=== PATIENT | female | born 1955 | race Caucasian/White ===

== ENCOUNTER 2016-10-03 10:30 | Observation (INO) | payer BC ==
--- NOTE | 2016-10-03 10:48 | ED ---
General Adult HPI - General Chief complaint: Chest Pain Stated complaint: chest pain Time Seen by Provider: 10/03/16 10:40 Source: patient, RN notes reviewed Mode of arrival: wheelchair Limitations: no limitations - History of Present Illness Initial comments: This is a 60-year-old female presents emergency Department complaining of difficulty breathing. Patient states his been ongoing for a few weeks but getting progressively worse per patient states she noticed particularly when she has done some exertion. Patient states about 3 years ago she had similar symptoms but they couldn't find anything wrong. 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 Patient states when she has the difficulty breathing she also has some discomfort in her chest that goes up and her neck into her right jaw. Patient states rest takes away the pain in the difficulty breathing. Patient denies any recent fever chills or cough. Patient denies any recent trips or travel. Patient states she did not have any chest pain but she did have palpitations. Patient denies any headache patient denies any numbness weakness patient denies lightheadedness dizziness or near syncopal episode. Patient denies any leg swelling or calf pain. Patient denies abdominal pain patient denies nausea vomiting or diarrhea. - Related Data Home Medications Medication Instructions Recorded Confirmed Aspirin 325 mg PO DAILY PRN 10/03/16 10/03/16 L.acidoph,Paracasei, B.lactis 1 cap PO DAILY 10/03/16 10/03/16 [Probiotic] Powell-3 Fatty Acids [Powell-3] 1,000 mg PO DAILY 10/03/16 10/03/16 Pravastatin Sodium [Pravachol] 40 mg PO HS 10/03/16 10/03/16 Ubiquinol 100 mg PO HS 10/03/16 10/03/16 Allergies Allergy/AdvReac Type Severity Reaction Status Date / Time No Known Allergies Allergy Verified 10/03/16 11:15 Review of Systems ROS Statement: Those systems with pertinent positive or pertinent negative responses have been documented in the HPI. ROS Other: All systems not noted in ROS Statement are negative. Past Medical History Past Medical History: Hyperlipidemia History of Any Multi-Drug Resistant Organisms: None Reported Past Surgical History: Hysterectomy Past Psychological History: No Psychological Hx Reported Smoking Status: Never smoker Past Alcohol Use History: None Reported Past Drug Use History: None Reported General Exam - General Exam Comments Initial Comments: GENERAL: Patient is well-developed and well-nourished. Patient is nontoxic and well- hydrated and is in mild distress. ENT: Neck is soft and supple. No significant lymphadenopathy is noted. Oropharynx is clear. Moist mucous membranes. Neck has full range of motion without eliciting any pain. EYES: The sclera were anicteric and conjunctiva were pink and moist. Extraocular movements were intact and pupils were equal round and reactive to light. Eyelids were unremarkable. PULMONARY: Unlabored respirations. Good breath sounds bilaterally. No audible rales rhonchi or wheezing was noted. CARDIOVASCULAR: There is a regular rate and rhythm without any murmurs gallops or rubs. ABDOMEN: Soft and nontender with normal bowel sounds. No palpable organomegaly was noted. There is no palpable pulsatile mass. SKIN: Skin is clear with no lesions or rashes and otherwise unremarkable. NEUROLOGIC: Patient is alert and oriented x3. Cranial nerves II through XII are grossly intact. Motor and sensory are also intact. Normal speech, volume and content. Symmetrical smile. MUSCULOSKELETAL: Normal extremities with adequate strength and full range of motion. No lower extremity swelling or edema. No calf tenderness. LYMPHATICS: No significant lymphadenopathy is noted PSYCHIATRIC: Normal psychiatric evaluation. Normal interpersonal interactions appears functionally intact in deals appropriately with others. No signs of depression. No signs of anxiety. No delusions. No hallucinations. Limitations: no limitations Course Vital Signs 10/03/16 10/03/16 10/03/16 10:32 11:45 11:52 Temperature 97.8 F Pulse Rate 78 66 61 Respiratory 20 16 16 Rate Blood Pressure 190/92 156/86 160/86 O2 Sat by Pulse 99 97 96 Oximetry 10/03/16 12:30 Temperature Pulse Rate 62 Respiratory 16 Rate Blood Pressure 152/83 O2 Sat by Pulse 97 Oximetry Medical Decision Making - Medical Decision Making EKG shows normal sinus rhythm at 61 bpm RI intervals 158 QRSs 80 QT interval 384 QTC is 386. Patient's EKG shows no ST segment elevation or depression or T- wave inversion noted. Chest x-ray was normal. I will back into reevaluate the patient she states as long she is resting she's not having any of that upper chest discomfort radiating into her jaw. She states she is not short of breath. Because of her significant symptoms and especially with the relation ship with those symptoms to exertion think the patient is having unstable angina I put the patient on heparin and admitted the patient I spoke with Dr. Burgess and wrote admit orders. I continued the heparin on the floor and a consult cardiology. - Lab Data Result diagrams: 10/03/16 11:25 10/03/16 11:25 Lab Results 10/03/16 10/03/16 10/03/16 Range/Units 11:25 11:25 11:25 WBC 3.9 (3.8-10.6) k/uL RBC 4.49 (3.80-5.40) m/uL Hgb 13.2 (11.4-16.0) gm/dL Hct 39.3 (34.0-46.0) % MCV 87.5 (80.0-100.0) fL MCH 29.4 (25.0-35.0) pg MCHC 33.6 (31.0-37.0) g/dL RDW 12.3 (11.5-15.5) % Plt Count 308 (150-450) k/uL Neutrophils % 55 % Lymphocytes % 34 % Monocytes % 8 % Eosinophils % 1 % Basophils % 0 % Neutrophils # 2.1 (1.3-7.7) k/uL Lymphocytes # 1.3 (1.0-4.8) k/uL Monocytes # 0.3 (0-1.0) k/uL Eosinophils # 0.0 (0-0.7) k/uL Basophils # 0.0 (0-0.2) k/uL PT (9.0-12.0) sec INR (<1.1) APTT (22.0-30.0) sec D-Dimer (<0.60) mg/L FEU Sodium 145 (137-145) mmol/L Potassium 4.6 (3.5-5.1) mmol/L Chloride 105 (98-107) mmol/L Carbon Dioxide 27 (22-30) mmol/L Anion Gap 13 mmol/L BUN 17 (7-17) mg/dL Creatinine 0.79 (0.52-1.04) mg/dL Est GFR (MDRD) Af Amer >60 (>60 ml/min/1.73 sqM) Est GFR (MDRD) Non-Af >60 (>60 ml/min/1.73 sqM) Glucose 90 (74-99) mg/dL Calcium 9.5 (8.4-10.2) mg/dL Magnesium 2.3 (1.6-2.3) mg/dL Total Bilirubin 0.5 (0.2-1.3) mg/dL AST 22 (14-36) U/L ALT 33 (9-52) U/L Alkaline Phosphatase 59 (38-126) U/L Total Creatine Kinase 145 H (30-135) U/L CK-MB (CK-2) 1.6 (0.0-2.4) ng/mL CK-MB (CK-2) Rel Index 1.1 Troponin I <0.012 (0.000-0.034) ng/mL NT-Pro-B Natriuret Pep pg/mL Total Protein 7.6 (6.3-8.2) g/dL Albumin 4.6 (3.5-5.0) g/dL 10/03/16 10/03/16 Range/Units 11:25 11:25 WBC (3.8-10.6) k/uL RBC (3.80-5.40) m/uL Hgb (11.4-16.0) gm/dL Hct (34.0-46.0) % MCV (80.0-100.0) fL MCH (25.0-35.0) pg MCHC (31.0-37.0) g/dL RDW (11.5-15.5) % Plt Count (150-450) k/uL Neutrophils % % Lymphocytes % % Monocytes % % Eosinophils % % Basophils % % Neutrophils # (1.3-7.7) k/uL Lymphocytes # (1.0-4.8) k/uL Monocytes # (0-1.0) k/uL Eosinophils # (0-0.7) k/uL Basophils # (0-0.2) k/uL PT 10.3 (9.0-12.0) sec INR 1.0 (<1.1) APTT 23.8 (22.0-30.0) sec D-Dimer 0.29 (<0.60) mg/L FEU Sodium (137-145) mmol/L Potassium (3.5-5.1) mmol/L Chloride (98-107) mmol/L Carbon Dioxide (22-30) mmol/L Anion Gap mmol/L BUN (7-17) mg/dL Creatinine (0.52-1.04) mg/dL Est GFR (MDRD) Af Amer (>60 ml/min/1.73 sqM) Est GFR (MDRD) Non-Af (>60 ml/min/1.73 sqM) Glucose (74-99) mg/dL Calcium (8.4-10.2) mg/dL Magnesium (1.6-2.3) mg/dL Total Bilirubin (0.2-1.3) mg/dL AST (14-36) U/L ALT (9-52) U/L Alkaline Phosphatase (38-126) U/L Total Creatine Kinase (30-135) U/L CK-MB (CK-2) (0.0-2.4) ng/mL CK-MB (CK-2) Rel Index Troponin I (0.000-0.034) ng/mL NT-Pro-B Natriuret Pep 40 pg/mL Total Protein (6.3-8.2) g/dL Albumin (3.5-5.0) g/dL Critical Care Time Critical Care Time: Yes Total Critical Care Time: 35 Disposition Clinical Impression: Unstable angina pectoris Disposition: ADMITTED IP TO THIS [facility] Time of Disposition: 13:09
[2016-10-03 11:52] LABS: Basophils % (A) 0 %; CH 30.3; CHCM 34.7; Eosinophils % (A) 1 %; HCT 39.3 % (34.0-46.0); HGB 13.2 gm/dL (11.4-16.0); Luc # (Auto) 0.11; Luc % (Auto) 3; Lymphocytes # (A) 1.3 k/uL (1.0-4.8); Lymphocytes % (A) 34 %; MCH 29.4 pg (25.0-35.0); MCHC 33.6 g/dL (31.0-37.0); MCV 87.5 fL (80.0-100.0); Mean Platelet Volume 6.3; Monocytes # (A) 0.3 k/uL (0-1.0); Monocytes % (A) 8 %; Neutrophils # (A) 2.1 k/uL (1.3-7.7); Neutrophils % (A) 55 %; RBC 4.49 m/uL (3.80-5.40); RDW 12.3 % (11.5-15.5); WBC 3.9 k/uL (3.8-10.6); WBC (Perox) 3.98
[2016-10-03 12:02] LABS: Partial Thromboplastin Time 23.8 sec (22.0-30.0); Prothrombin Time 10.3 sec (9.0-12.0)
[2016-10-03 12:14] LABS: Creatine Kinase 145 U/L (30-135)
--- NOTE | 2016-10-03 12:14 | XR ---
EXAMINATION TYPE: XR chest 2V DATE OF EXAM: 10/03/2016 12:04 PM HISTORY: Chest and jaw pain. REFERENCE: NONE. FINDINGS: There is a mild to moderate levoscoliosis. The lungs are clear. Pleural spaces are clear. Heart size is within normal limits. IMPRESSION: NO ACUTE INTRATHORACIC ABNORMALITY.
[2016-10-03 12:27] LABS: Creatine Kinase MB 1.6 ng/mL (0.0-2.4); Troponin I <0.012 ng/mL (0.000-0.034)
[2016-10-03 12:31] LABS: ALT 33 U/L (9-52); AST 22 U/L (14-36); Alkaline Phosphatase 59 U/L (38-126); Anion Gap 13 mmol/L; Blood Urea Nitrogen 17 mg/dL (7-17); Calcium 9.5 mg/dL (8.4-10.2); Carbon Dioxide 27 mmol/L (22-30); Chloride 105 mmol/L (98-107); Glucose 90 mg/dL (74-99); Magnesium 2.3 mg/dL (1.6-2.3); Non-African American GFR(MDRD) >60 (>60 ml/min/1.73 sqM); Potassium 4.6 mmol/L (3.5-5.1); Sodium 145 mmol/L (137-145); Total Bilirubin 0.5 mg/dL (0.2-1.3); Total Protein 7.6 g/dL (6.3-8.2)
[2016-10-03] MEDS ORDERED: NITROGLYCERIN SL TABS 0.4 MG TAB SUBLINGUAL PRN (13:09)
[2016-10-03 18:25] LABS: Creatine Kinase 117 U/L (30-135)
[2016-10-03 18:39] LABS: Creatine Kinase MB 1.2 ng/mL (0.0-2.4); Troponin I <0.012 ng/mL (0.000-0.034)
[2016-10-03] MEDS: NITROGLYCERIN OINT 1 INCH/GM PACKET TOPICAL SCH (21:36)
[2016-10-04] MEDS: NITROGLYCERIN OINT 1 INCH/GM PACKET TOPICAL SCH ×3 (00:01→16:03)
[2016-10-04 00:30] LABS: Creatine Kinase 101 U/L (30-135)
[2016-10-04 00:43] LABS: Creatine Kinase MB 1.1 ng/mL (0.0-2.4); Troponin I <0.012 ng/mL (0.000-0.034)
[2016-10-04 07:38] LABS: Cholesterol 207 mg/dL (<200); HDL Cholesterol 68 mg/dL (40-60); Triglycerides 81 mg/dL (<150)
[2016-10-04] MEDS ORDERED: ALPRAZolam 0.5 MG TAB PO PRN (09:41)
[2016-10-04] MEDS ORDERED: SODIUM CHLORIDE 0.9% 1,000 ML in EMPTY BAG 1 BAG IV ONE (09:41)
[2016-10-04] MEDS ORDERED: ALPRAZolam 0.25 MG TAB PO PRN (09:41)
[2016-10-04] MEDS ORDERED: NITROGLYCERIN SL TABS 0.4 MG TAB SUBLINGUAL PRN (09:41)
[2016-10-04] MEDS ORDERED: ATORVASTATIN 80 MG TAB PO STA (09:41)
--- NOTE | 2016-10-04 09:47 | P.CRDCN ---
History of Present Illness Consult date: 10/04/16 History of present illness: This is a 60-year-old female with history of hypercholesterolemia and family history of ischemic heart disease has been experiencing a tight feeling in the upper chest that radiated to the jaw and also to the left arm. This happens mostly in the morning while she was working on her form. Usually the symptoms are resolved with rest within 5 minutes. He should never had any rest pain. Patient's EKG so far are normal. Cardiac enzymes are negative. However given the typical symptoms size to of angina, patient is advised to have a cardiac catheterization for definitive diagnosis. She was also given a choice of stress test that patient preferred to have cardiac catheterization and have definitive diagnosis. Patient is explained the risks and benefits of the procedure which she fully understood and accepted. Review of Systems REVIEW OF SYSTEMS: CONSTITUTIONAL:. Patient is doing well. No complaints of fever or chills EYES: Denies diplopia, blurring of vision EARS, NOSE, MOUTH, THROAT: Denies headaches, denies sore throat. CARDIOVASCULAR: As per HPI RESPIRATORY: Denies shortness of breath, denies cough. GASTROINTESTINAL: Denies change in appetite, denies abdominal pain, denies diarrhea GENITOURINARY: Denies hematuria, denies infections. MUSKULOSKELETAL: Denies pain, denies swelling. Denies any cramps or claudication INTEGUMENTARY: Denies rash, denies eczema. NEUROLOGICAL: Denies focal weakness, or visual disturbance. Denies any dizziness or syncope PSYCHIATRIC: Denies anxiety, denies depression. HEMATOLOGIC/LYMPHATIC: Denies any bleeding, denies enlarged lymph nodes. Past Medical History Past Medical History: Hyperlipidemia Additional Past Medical History / Comment(s): Migraines, osteoporosis, bronchitis, diverticular disease, past L foot and R ankle fractures. History of Any Multi-Drug Resistant Organisms: None Reported Past Surgical History: Bladder Surgery, Hysterectomy Additional Past Surgical History / Comment(s): Bladder suspension, colonoscopy- normal. Past Anesthesia/Blood Transfusion Reactions: No Reported Reaction Past Psychological History: No Psychological Hx Reported Additional Psychological History / Comment(s): Pt resides with her spouse. She is independent. Smoking Status: Never smoker Past Alcohol Use History: None Reported Past Drug Use History: None Reported - Past Family History Father Additional Family Medical History / Comment(s): Father had enlarged heart. He at the age of 88yrs. Mother Family Medical History: Myocardial Infarction (UT) Additional Family Medical History / Comment(s): Mother had UT's. She lived to be 91 yrs. old. Medications and Allergies Home Medications Medication Instructions Recorded Confirmed Type Aspirin 325 mg PO DAILY PRN 10/03/16 10/03/16 History L.acidoph,Paracasei, B.lactis 1 cap PO DAILY 10/03/16 10/03/16 History [Probiotic] Prospect-3 Fatty Acids [Prospect-3] 1,000 mg PO DAILY 10/03/16 10/03/16 History Pravastatin Sodium [Pravachol] 40 mg PO HS 10/03/16 10/03/16 History Ubiquinol 100 mg PO HS 10/03/16 10/03/16 History Allergies Allergy/AdvReac Type Severity Reaction Status Date / Time No Known Allergies Allergy Verified 10/03/16 11:15 Physical Exam Vitals: Vital Signs Temp Pulse Pulse Resp BP BP Pulse Ox 10/04/16 07:10 98.5 F 65 16 129/78 93 L 10/04/16 04:00 97.7 F 67 16 116/69 97 10/04/16 03:40 70 16 10/03/16 23:53 97.9 F 68 16 130/72 96 10/03/16 23:17 76 16 10/03/16 20:00 67 16 10/03/16 19:58 98.5 F 69 16 138/77 96 10/03/16 19:32 97.5 F L 74 16 143/82 94 L 10/03/16 18:12 70 16 113/64 95 10/03/16 17:30 74 16 117/68 95 10/03/16 17:00 78 16 124/70 96 10/03/16 16:00 97.2 F L 68 16 134/83 95 Intake and Output 10/03/16 10/04/16 10/04/16 22:59 06:59 14:59 Other: # Voids 2 Weight 55 kg GENERAL EXAM: Patient is alert and oriented and doesn't appear to be in any acute distress HEENT: Normocephalic. Normal reaction of pupils, equal size, normal range of extraocular motion. No erythema or exudates in the throat. NECK: No masses, no nuchal rigidity. CHEST: No chest wall deformity. LUNGS: Equal air entry with no crackles or wheeze. HEART: S1 and S2 normal with no audible mumurs or gallops. Regular rhythm, femorals equal on both sides.. ABDOMEN: No hepatosplenomegaly, normal bowel sounds, no guarding or rigidity. SKIN: No rashes CENTRAL NERVOUS SYSTEM: No focal deficits. EXTREMITIES: No cyanosis, clubbing or edema. Results 10/03/16 11:25 10/03/16 11:25 Cardiac Enzymes 10/03/16 10/03/16 Range/Units 17:52 23:49 CK-MB (CK-2) 1.2 1.1 (0.0-2.4) ng/mL Troponin I <0.012 <0.012 (0.000-0.034) ng/mL Lipids 10/04/16 Range/Units 06:43 Triglycerides 81 (<150) mg/dL Cholesterol 207 H (<200) mg/dL HDL Cholesterol 68 H (40-60) mg/dL Current Medications Generic Name Dose Route Start Last Admin Trade Name Freq PRN Reason Stop Dose Admin Aspirin 325 mg 10/04/16 09:00 Aspirin PO DAILY [facility] Nitroglycerin 1 inch 10/03/16 18:00 10/04/16 05:17 Nitro-Bid Oint TOPICAL Not Given Q6HR ROSARIO Nitroglycerin 0.4 mg 10/03/16 13:09 Nitrostat SUBLINGUAL Q5M PRN Chest Pain Intake and Output 10/03/16 10/04/16 10/04/16 22:59 06:59 14:59 Other: # Voids 2 Weight 55 kg EKG Interpretations (text) Sinus rhythm Assessment and Plan (1) Hypercholesterolemia Status: Acute (2) Unstable angina pectoris Status: Acute (3) Family history of ischemic heart disease Status: Acute Plan: Patient's symptoms are suggestive of exertional angina. Patient had a stress test about 3 years ago which was negative. Patient is given the option of having stress test or cardiac catheterization for definitive diagnosis. Patient was explained the risks and benefits of the procedure. Patient wanted to go with cardiac catheterization. Further recommendations depend upon the findings on the cardiac cath. Meanwhile patient will be treated with beta blockers and nitrates along with aspirin echo. Echocardiogram is also being done.
[2016-10-04] MEDS: ASPIRIN 325 MG TAB PO SCH (10:28)
--- NOTE | 2016-10-04 11:04 | ECHOF ---
Referral Reason:Chest pain and cardiomyopathy MEASUREMENTS -------- HEIGHT: 149.9 cm WEIGHT: 54.9 kg BP: 129/78 RVIDd: 2.6 cm (< 3.3) IVSd: 1.1 cm (0.6 - 1.1) LVIDd: 3.9 cm (3.9 - 5.3) LVPWd: 0.9 cm (0.6 - 1.1) IVSs: 1.4 cm LVIDs: 2.5 cm LVPWs: 1.3 cm LA Diam: 2.7 cm (2.7 - 3.8) LAESV Index (A-L): 15.49 ml/m Ao Diam: 2.6 cm (2.0 - 3.7) AV Cusp: 1.8 cm (1.5 - 2.6) MV E Vinayak: 0.73 m/s MV DecT: 240 ms MV A Vinayak: 0.74 m/s MV E/A Ratio: 0.99 RAP: 5.00 mmHg RVSP: 26.36 mmHg FINDINGS -------- Sinus rhythm. This was a technically good study. The left ventricular size is normal. There is borderline concentric left ventricular hypertrophy. Overall left ventricular systolic function is normal with, an EF between 60 - 65 %. The right ventricle is normal in size and function. Normal LA size by volume 22+/-6 ml/m2. The right atrium is normal in size. The aortic valve is trileaflet and appears structurally normal. There is trace mitral regurgitation. Mild tricuspid regurgitation present. Right ventricular systolic pressure is normal at < 35 mmHg. The pulmonic valve is normal. There is no pulmonic regurgitation present. The aortic root size is normal. Normal inferior vena cava with normal inspiratory collapse consistent with estimated right atrial pressure of 5 mmHg. There is no pericardial effusion. CONCLUSIONS -------- 1. Sinus rhythm. 2. There is trace mitral regurgitation. 3. Mild tricuspid regurgitation present. 4. Right ventricular systolic pressure is normal at < 35 mmHg. 5. The aortic root size is normal. 6. Normal inferior vena cava with normal inspiratory collapse consistent with estimated right atrial pressure of 5 mmHg. 7. There is no pericardial effusion. 8. This was a technically good study. 9. The left ventricular size is normal. 10. There is borderline concentric left ventricular hypertrophy. 11. Overall left ventricular systolic function is normal with, an EF between 60 - 65 %. 12. The right ventricle is normal in size and function. 13. Normal LA size by volume 22+/-6 ml/m2. 14. The right atrium is normal in size. 15. The aortic valve is trileaflet and appears structurally normal. BRONZE PLATER: Corrie Zhao RDCS
[2016-10-04] MEDS ORDERED: IV FLUID CONTINUATION 1,000 ML IV ONE (14:00)
[2016-10-04] MEDS ORDERED: LIDOCAINE 2% INJ 20 MG/ML (20 ML MDV) ONE (14:07)
[2016-10-04] MEDS ORDERED: MIDAZOLAM 2 MG/2 ML VIAL ONE (14:19)
[2016-10-04] MEDS ORDERED: fentaNYL (PF) 50 MCG/ML 2 ML AMP ONE (14:20)
[2016-10-04] MEDS ORDERED: fentaNYL (PF) 50 MCG/ML 2 ML AMP IV ONE (14:21)
[2016-10-04] MEDS ORDERED: MIDAZOLAM 2 MG/2 ML VIAL IV ONE (14:22)
[2016-10-04] MEDS ORDERED: LIDOCAINE 2% INJ 20 MG/ML SQ ONE (14:23)
[2016-10-04] MEDS ORDERED: IOHEXOL 350 MG/ML 100 ML BOTTLE INJ ONE (14:36)
[2016-10-04] MEDS ORDERED: RX INFO: IV CONTRAST WAS GIVEN 1 EACH MISC MISCELLANE PRN (14:46)
--- NOTE | 2016-10-04 14:54 | P.PCN ---
Date of Procedure: 10/04/16 Preoperative Diagnosis: Exertional angina Postoperative Diagnosis: The same. Single-vessel disease Procedure(s) Performed: Left heart catheterization with left ventriculography Description of Procedure: HISTORY: This is a 60-year-old female with history of hypercholesterolemia and family history of ischemic heart disease who has been experiencing exertional chest pain suggestive of exertional angina. Patient had a negative stress test about 3 years ago. Patient is advised to have a cardiac catheterization for definitive diagnosis. CONSENT:I have discussed the risks, benefits and alternative therapies for the above-mentioned procedure and for both sedation/analgesia as well as necessary blood product administration, if indicated, as they pertain to this patient. The patient has indicated understanding and acceptance of the risks and procedures discussed. PROCEDURE: Patient was brought to the lab in a fasting state. Patient was given some IV sedation. The right groin is infiltrated with lidocaine and right femoral artery was entered using Seldinger technique. A 6-Mongolian catheter was left in place and selective coronary arteriography and left ventriculography was performed. Patient tolerated the procedure well. Manual compression is being applied for hemostasis. No immediate complications were noted and patient was transferred to [facility] in a stable condition HEMODYNAMICS: Aortic pressure is 120/70. Left ventricular end-diastolic pressure is 12. There was no gradient across the aortic valve SELECTIVE CORONARY ARTERIOGRAPHY: LEFT MAIN:. Normal length and patent THE LEFT ANTERIOR DESCENDING CORONARY ARTERY: Fair caliber vessel with plaque noted in the left anterior descending coronary artery in the midportion with 30-40% luminal narrowing. There is also about 40 % stenosis of the first diagonal. The far distal LAD has about 70-80% stenosis near the apex THE LEFT CIRCUMFLEX AND IS CORONARY ARTERY: Good caliber vessel and free of any significant occlusive disease. It gives rise to moderate caliber OM branch and a small PLV branch THE RIGHT CORONARY ARTERY: This is a good caliber vessel and dominant and gives rise good-sized PDA and small caliber PDA branch. The vessel is free of any significant occlusive disease LEFT VENTRICULOGRAPHY: This showed normal-sized cardiac silhouette with good systolic function FINAL IMPRESSION: Single-vessel disease with a mild stenosis in the midportion and also involving the ostium of the diagonal branch. There is moderate to severe disease involving the distal LAD near the apex. Rest of the coronary system is free of any significant occlusive disease PLAN: Maximum medical therapy and risk factor modification PROGNOSIS: Fair
[2016-10-04] MEDS ORDERED: SODIUM CHLORIDE 0.9% 1,000 ML IV SCH (15:00)
--- NOTE | 2016-10-04 19:16 | HP ---
H&P AND DISCHARGE SUMMARY DATE OF ADMISSION: 10/03/2016 Patient is a 60-year-old female who came in with complaints of chest pain which started after lifting boxes. The chest pain is in the retrosternal area as well as in the epigastric area. Patient does have some non-specific ST-T wave changes. Troponins were negative. Patient's chest pain is associated with some shortness of breath, light-headedness. Chest pain is about 7/10 in severity, mostly a pressure-like sensation. Because of the typical nature of the chest pain, patient underwent cardiac catheterization which showed clean coronaries. The patient does not have any chronic processes on the chest x-ray. D-dimer is negative. Patient's chest pain is non-pleuritic in nature. Apparently patient was nauseous and patient did eat around that time. Patient was having some gastroesophageal reflux disease symptoms that had been going on for some time, per the patient. REVIEW OF SYSTEMS: CONSTITUTIONAL: No fever, no malaise, no fatigue. HEENT: No recent visual problems or hearing problems. Denied any sore throat. CARDIOVASCULAR: As described in HPI. Patient denied any orthopnea, PND. Patient did have some shortness of breath, resolved at this point of time. Patient's chest pain completely resolved since admission. PULMONARY: No shortness of breath, no cough, no hemoptysis. GASTROINTESTINAL: No diarrhea, no nausea, no vomiting, no abdominal pain. Normoactive bowel sounds. NEUROLOGICAL: No headaches, no weakness, no numbness. HEMATOLOGICAL: Denies any bleeding or petechiae. GENITOURINARY: Denies any burning micturition, frequency, or urgency. MUSCULOSKELETAL/RHEUMATOLOGICAL: Denies any joint pain, swelling, or any muscle pain. ENDOCRINE: Denies any polyuria or polydipsia. The rest of the 14 point review of systems is negative. Home medications include: 1. Aspirin. 2. Lactobacillus acidophilus. 3. Oxford-3 fatty acids. 4. Pravastatin. 5. Ubiquinol. ALLERGIES: NO KNOWN DRUG ALLERGIES. Past medical history is significant for hyperlipidemia, hysterectomy in the past. SOCIAL HISTORY: Denied any smoking, alcohol abuse or any drug abuse. FAMILY HISTORY: Denied any family history of premature coronary artery disease. PHYSICAL EXAMINATION: VITAL SIGNS: Temperature 97.8, pulse ( ), respiratory rate of 16. Blood pressure is 160/86. Saturating at 96% on room air. GENERAL: The patient is alert and oriented x3, not in any acute distress. Well developed, well nourished. HEENT: Pupils are round and equally reacting to light. EOMI. No scleral icterus. No conjunctival pallor. Normocephalic, atraumatic. No pharyngeal erythema. No thyromegaly. CARDIOVASCULAR: S1 and S2 present. No murmurs, rubs, or gallops. PULMONARY: Chest is clear to auscultation, no wheezing or crackles. ABDOMEN: Soft, nontender, nondistended, normoactive bowel sounds. No palpable organomegaly. MUSCULOSKELETAL: No joint swelling or deformity. EXTREMITIES: No cyanosis, clubbing, or pedal edema. NEUROLOGICAL: Gross neurological examination did not reveal any focal deficits. SKIN: No rashes. LABORATORY DATA: CBC, CMP, troponin, EKG all essentially negative. D-dimer is negative. Patient underwent cardiac catheterization which did not show any significant coronary occlusive vascular disease. ASSESSMENT AND PLAN: 1. Chest pain; rule out acute coronary syndromes and unstable angina. Patient underwent cardiac catheterization that showed clean coronaries. Patient's symptoms are most probably related to gastroesophageal reflux disease. Patient is recommended to take 14 days of Prilosec. Apparently Cardiology is recommending monitoring overnight because of the cardiac catheterization and for possible hematoma formation. Patient can be discharged tomorrow. 2. Hyperlipidemia. Patient is taking pravastatin and omega-3 fatty acids, which will be continued. Dietary modification changes and diet counseling will be provided. Exercise counseling will be provided. 3. Gastritis or gastroesophageal reflux symptoms. Management as mentioned above. This dictation is both H&P and discharge summary. Patient probably can be discharged tomorrow morning. Cardiac diet. Activity as tolerated. Follow up with her PCP in 3 to 7 days and follow up with Cardiology as scheduled.
[2016-10-04 20:28] VITALS: RESP 16
[2016-10-05 07:43] VITALS: BP 128/74; PULSE 69; TEMP 98
[2016-10-05] MEDS: ASPIRIN 325 MG TAB PO SCH (08:56)
[2016-10-05] MEDS ORDERED: ISOSORBIDE MONONITRATE ER 30 MG TAB.ER.24H PO SCH (09:00)
[2016-10-05] MEDS ORDERED: METOPROLOL TARTRATE 25 MG TAB PO SCH (09:00)
== END 2016-10-05 09:39 | disposition home or self-care (01) ==
LOC: EC 10:30 → 3OBS 13:09
PROVIDERS: ADMIT Internal Medicine; ATTEND Internal Medicine
DX: I25.110 Atherosclerotic heart disease of native coronary artery with unstable angina pectoris (principal); E78.00 Pure hypercholesterolemia, unspecified; E78.5 Hyperlipidemia, unspecified; K21.9 Gastro-esophageal reflux disease without esophagitis; M81.0 Age-related osteoporosis without current pathological fracture; Z79.82 Long term (current) use of aspirin; Z82.49 Family history of ischemic heart disease and other diseases of the circulatory system; Z79.899 Other long term (current) drug therapy
CPT/HCPCS: 99291; 36415; 93005; 93306; 93458; 85379; 83880; 80061; 80053; 82550; 82553; 83735; 84484; 85025; 85610; 85730; 71020; G0378 ×3; C1894; C1769; J2001; J2250; Q9967; J3010

== ENCOUNTER → 2017-01-28 | Outpatient (CLI) | payer BC ==
--- NOTE | 2017-01-30 07:37 | MM ---
Reason for exam: screening (asymptomatic). Last mammogram was performed 1 year ago. History: Patient is postmenopausal. Family history of breast cancer in maternal aunt at age 80. Physical Findings: A clinical breast exam by your physician is recommended on an annual basis and results should be correlated with mammographic findings. MG Screening Mammo w CAD Bilateral CC and MLO view(s) were taken. Prior study comparison: January 16, 2016, bilateral MG screening mammo w CAD. January 05, 2015, bilateral MG screening mammo w CAD. October 26, 2013, bilateral digital screening mammo w/CAD. The breast tissue is heterogeneously dense. This may lower the sensitivity of mammography. No significant changes when compared with prior studies. ASSESSMENT: Negative, BI-RAD 1 RECOMMENDATION: Routine screening mammogram of both breasts in 1 year.
== END | disposition home or self-care (01) ==
LOC: RADMAMWWP 16:10
PROVIDERS: ATTEND Internal Medicine
DX: Z12.31 Encounter for screening mammogram for malignant neoplasm of breast (principal)

== ENCOUNTER → 2018-06-11 | Outpatient (CLI) | payer BC ==
--- NOTE | 2018-06-12 14:17 | MM ---
Reason for exam: screening (asymptomatic). Last mammogram was performed 1 year and 4 months ago. History: Patient is postmenopausal. Family history of breast cancer in maternal aunt at age 80. Physical Findings: A clinical breast exam by your physician is recommended on an annual basis and results should be correlated with mammographic findings. MG Screening Mammo w CAD Bilateral CC and MLO view(s) were taken. Prior study comparison: January 28, 2017, bilateral MG screening mammo w CAD. January 16, 2016, bilateral MG screening mammo w CAD. The breast tissue is heterogeneously dense. This may lower the sensitivity of mammography. There is no discrete abnormality. ASSESSMENT: Negative, BI-RAD 1 RECOMMENDATION: Routine screening mammogram of both breasts in 1 year.
== END | disposition home or self-care (01) ==
LOC: RADMAMWWP 08:50
PROVIDERS: ATTEND Internal Medicine
DX: Z12.31 Encounter for screening mammogram for malignant neoplasm of breast (principal)
CPT/HCPCS: 77067

== ENCOUNTER → 2019-09-08 | Outpatient (CLI) | payer BC ==
--- NOTE | 2019-09-10 09:29 | MM ---
Reason for exam: screening (asymptomatic). Last mammogram was performed 1 year and 3 months ago. History: Patient is postmenopausal. Family history of breast cancer in maternal aunt at age 80. Physical Findings: A clinical breast exam by your physician is recommended on an annual basis and results should be correlated with mammographic findings. MG Screening Mammo w CAD Bilateral CC and MLO view(s) were taken. Prior study comparison: June 11, 2018, bilateral MG screening mammo w CAD. January 28, 2017, bilateral MG screening mammo w CAD. The breast tissue is heterogeneously dense. This may lower the sensitivity of mammography. No suspicious abnormality. No significant changes when compared with prior studies. ASSESSMENT: Negative, BI-RAD 1 RECOMMENDATION: Routine screening mammogram of both breasts in 1 year.
== END | disposition home or self-care (01) ==
LOC: RADMAMWWP 07:40
PROVIDERS: ATTEND Internal Medicine
DX: Z12.31 Encounter for screening mammogram for malignant neoplasm of breast (principal)
CPT/HCPCS: 77067

== ENCOUNTER → 2020-11-11 | Outpatient (CLI) | payer BC | END | disposition home or self-care (01) | LOC: LABWHC1 14:51 | PROVIDERS: ATTEND Internal Medicine | DX: Z53.9 Procedure and treatment not carried out, unspecified reason (principal) ==

== ENCOUNTER 2021-02-08 19:07 | Emergency (ER) | payer MEDICARE ==
--- NOTE | 2021-02-08 19:37 | XR ---
EXAMINATION TYPE: XR foot complete LT DATE OF EXAM: 02/08/2021 COMPARISON: NONE HISTORY: Foot pain TECHNIQUE: 3 views FINDINGS: There is hallux valgus. There is plantar calcaneal spurring. I see no fracture nor dislocat ion. IMPRESSION: Moderate hallux valgus. No fracture seen.
--- NOTE | 2021-02-08 19:38 | XR ---
EXAMINATION TYPE: XR ankle complete LT DATE OF EXAM: 02/08/2021 COMPARISON: NONE HISTORY: Pain TECHNIQUE: 3 views FINDINGS: Ankle mortise is anatomic. I see no fracture nor dislocation. Joint spaces are normal. IMPRESSION: Negative left ankle exam. No fracture.
--- NOTE | 2021-02-08 19:52 | ED ---
Lower Extremity Injury HPI - General Chief Complaint: Extremity Injury, Lower Stated Complaint: fall/ankle injury Time Seen by Provider: 02/08/21 19:16 Source: patient, RN notes reviewed Mode of arrival: wheelchair Limitations: no limitations - History of Present Illness Initial Comments: Patient is a 65-year-old female presents to emergency room with left ankle pain. She notes that she was helping in the yard when she got her foot run over by a small farm tractor. She notes that she is able to walk on it with normal pain that shoots up the calf. She denied any numbness tingling decreased range of motion or strength. She notes that she has full range of motion just hurts on movement. She did ice it. She wanted to come in emergently get evaluated make sure nothing was broken. She denied any chest pain shortness breath headache nausea vomiting diarrhea constipation fever fatigue chills. - Related Data Home Medications Medication Instructions Recorded Confirmed Aspirin 325 mg PO DAILY PRN 10/03/16 10/03/16 L.acidoph,Paracasei, B.lactis 1 cap PO DAILY 10/03/16 10/03/16 [Probiotic] [place]-3 Fatty Acids [[place]-3] 1,000 mg PO DAILY 10/03/16 10/03/16 Pravastatin Sodium [Pravachol] 40 mg PO HS 10/03/16 10/03/16 Ubiquinol [Co-Veratrol] 100 mg PO HS 10/03/16 10/03/16 Previous Rx's Medication Instructions Recorded Omeprazole [PriLOSEC] 40 mg PO AC-BRKFST #14 capsule. 10/04/16 Isosorbide Mononitrate ER [Imdur] 15 mg PO DAILY #30 dose 10/05/16 Metoprolol Tartrate [Lopressor] 25 mg PO BID #60 tablet 10/05/16 Allergies Allergy/AdvReac Type Severity Reaction Status Date / Time No Known Allergies Allergy Verified 02/08/21 19:12 Review of Systems ROS Statement: Those systems with pertinent positive or pertinent negative responses have been documented in the HPI. ROS Other: All systems not noted in ROS Statement are negative. Past Medical History Past Medical History: Hyperlipidemia Additional Past Medical History / Comment(s): Migraines, osteoporosis, bronchitis, diverticular disease, past L foot and R ankle fractures. History of Any Multi-Drug Resistant Organisms: None Reported Past Surgical History: Bladder Surgery, Hysterectomy Additional Past Surgical History / Comment(s): Bladder suspension, colonoscopy- normal. Past Anesthesia/Blood Transfusion Reactions: No Reported Reaction Past Psychological History: No Psychological Hx Reported Smoking Status: Never smoker Past Alcohol Use History: None Reported Past Drug Use History: None Reported - Past Family History Father Additional Family Medical History / Comment(s): Father had enlarged heart. He at the age of 88yrs. Mother Family Medical History: Myocardial Infarction ([place]) Additional Family Medical History / Comment(s): Mother had VA's. She lived to be 91 yrs. old. General Exam Limitations: no limitations General appearance: alert, in no apparent distress Head exam: Present: atraumatic, normocephalic, normal inspection Eye exam: Present: normal appearance, PERRL, EOMI. Absent: scleral icterus, conjunctival injection, periorbital swelling Neck exam: Present: normal inspection Respiratory exam: Present: normal lung sounds bilaterally. Absent: respiratory distress, wheezes, rales, rhonchi, stridor Cardiovascular Exam: Present: regular rate, normal rhythm, normal heart sounds. Absent: systolic murmur, diastolic murmur, rubs, gallop, clicks Extremities exam: Present: normal inspection, full ROM, tenderness (Mainly tender to the superior aspect of the lateral malleoli of left ankle.), normal capillary refill. Absent: pedal edema, joint swelling, calf tenderness Neurological exam: Present: alert, oriented X3, CN II-XII intact Psychiatric exam: Present: normal affect, normal mood Skin exam: Present: warm, dry, intact, normal color. Absent: rash Course Vital Signs 02/08/21 19:08 Temperature 98.5 F Pulse Rate 66 Respiratory 20 Rate Blood Pressure 184/97 O2 Sat by Pulse 98 Oximetry Medical Decision Making - Medical Decision Making 65-year-old female complaining of left ankle pain after getting run over by a small farm tractor. Left ankle and foot x-ray ordered. Patient declined need for any pain medication as she took Motrin before she came in. X-rays negative for any acute fractures dislocations. Case discussed with Dr. Hardwick, patient can follow-up with primary care. - Radiology Data Radiology results: report reviewed, image reviewed Left foot x-ray: Moderate hallux valgus. No fracture seen. Left ankle x-ray: Negative left ankle exam. No fracture. Disposition Clinical Impression: Left ankle sprain Disposition: HOME SELF-CARE Condition: Stable Instructions (If sedation given, give patient instructions): Ankle Sprain (ED) Additional Instructions: Please return to the Emergency Department if symptoms worsen or any other concerns. Can take [id number] anti-inflammatories for pain control. Use as tolerated. Follow-up with primary care as needed. Is patient prescribed a controlled substance at d/c from ED?: No Referrals: Fabiola Bass MD [Primary Care Provider] - 1-2 days Time of Disposition: 19:52
[2021-02-08 20:02] VITALS: BP 99/66; PULSE 78; RESP 18; TEMP 97.8
== END 2021-02-08 20:01 | disposition home or self-care (01) ==
LOC: EC 19:07
DX: S93.402A Sprain of unspecified ligament of left ankle, initial encounter (principal); E78.5 Hyperlipidemia, unspecified; M81.0 Age-related osteoporosis without current pathological fracture; Z90.710 Acquired absence of both cervix and uterus; W30.81XA Contact with agricultural transport vehicle in stationary use, initial encounter
CPT/HCPCS: 99283

== ENCOUNTER → 2021-10-24 | Outpatient (CLI) | payer MEDICARE ==
--- NOTE | 2021-10-24 17:59 | BD ---
EXAMINATION TYPE: Axial Bone Density DATE OF EXAM: 10/24/2021 COMPARISON: 12/19/2015 CLINICAL HISTORY: Postmenopausal screening Height: 58.2 IN Weight: 121 LBS RISK FACTORS HISTORY OF: Family History of Osteoporosis: YES MOTHER Active: YES Postmenopausal woman: PARTIAL HYST AGE 50 MEDICATIONS: Osteoporosis Medications: NOT NOW Which medication: Fosamax How Lon YEAR Additional Medications: METOPROLOL, LOW DOSE ASPIRIN EXAM MEASUREMENTS: Bone mineral densitometry was performed using the [employer] System. Bone mineral density as measured about the Lumbar spine is: ----- L1-L4(G/cm2): 0.730 T Score Values are as follows: ----- L2: -3.5 ----- L3: -3.9 ----- L4: -4.0 ----- L1-L4: -3.8 Bone mineral density has: Decreased -0.4% since study of: 12/19/2015 Bone mineral density about the R hip (g/cm2): 0.671 Bone mineral density about the L hip (g/cm2): 0.652 T Score values are as follows: -----R Neck: -2.6 -----L Neck: -2.8 -----R Total: -2.3 -----L Total: -2.0 Bone mineral density has: Decreased -2.2% since study of: 12/19/2015 IMPRESSION: Osteoporosis (T Score less than -2.5). There is increased fracture risk and therapy is usually indicated based on age. Re-Screen 1-2 years. NOTE: T-SCORE=SD OF THE YOUNG ADULT MEAN.
--- NOTE | 2021-10-25 14:06 | MM ---
Reason for exam: screening (asymptomatic). Last mammogram was performed 2 years and 1 month ago. History: Patient is postmenopausal. Family history of breast cancer in maternal aunt at age 80. Physical Findings: A clinical breast exam by your physician is recommended on an annual basis and results should be correlated with mammographic findings. MG 3D Screening Mammo W/Cad Bilateral CC and MLO view(s) were taken. Prior study comparison: September 08, 2019, bilateral MG screening mammo w CAD. June 11, 2018, bilateral MG screening mammo w CAD. The breast tissue is heterogeneously dense. This may lower the sensitivity of mammography. There is no discrete abnormality. ASSESSMENT: Benign, BI-RAD 2 RECOMMENDATION: Routine screening mammogram of both breasts in 1 year.
== END | disposition home or self-care (01) ==
LOC: RADMAMWWP 09:53
PROVIDERS: ATTEND Internal Medicine
DX: Z12.31 Encounter for screening mammogram for malignant neoplasm of breast (principal); M85.89 Other specified disorders of bone density and structure, multiple sites; M81.0 Age-related osteoporosis without current pathological fracture
CPT/HCPCS: 77063; 77067; 77080

== ENCOUNTER → 2022-01-15 | Outpatient (CLI) | payer MEDICARE ==
--- NOTE | 2022-01-15 15:20 | XR ---
EXAMINATION TYPE: XR chest 2V DATE OF EXAM: 01/15/2022 COMPARISON: This x-ray 10/03/2016 HISTORY: Cough TECHNIQUE: Frontal and lateral views of the chest are obtained. FINDINGS: There is no focal air space opacity, pleural effusion, or pneumothorax seen. The cardiac silhouette size is within normal limits. Prominent lung volumes suggest underlying COPD. The osseous structures are intact, S-shaped scoliosis is again seen within the visualized spine. Aorta is dense. There is eventration of the right hemidiaphragm as on prior exam.. IMPRESSION: No acute cardiopulmonary process.
== END | disposition home or self-care (01) ==
LOC: RADXRYALE 13:37
PROVIDERS: ATTEND Internal Medicine
DX: R05.9 Cough, unspecified (principal)
CPT/HCPCS: 71046

== ENCOUNTER → 2023-01-08 | Outpatient (CLI) | payer MEDICARE ==
--- NOTE | 2023-01-09 08:56 | MM ---
Reason for Exam: Screening (asymptomatic). Last mammogram was performed 1 year(s) and 3 month(s) ago. Patient History: Menarche at age 12. First Full-Term at age 25. Hysterectomy at age 50. Postmenopausal. Maternal aunt had breast cancer, age 80. Risk Values: Shania 5 year model risk: 1.9%. NCI Lifetime model risk: 6.4%. Prior Study Comparison: 06/11/2018 Bilateral Screening Mammogram, [facility]. 09/08/2019 Bilateral Screening Mammogram, [facility]. 10/24/2021 Bilateral Screening Mammogram, [facility]. Tissue Density: The breast tissue is heterogeneously dense. This may lower the sensitivity of mammography. Findings: Analyzed By CAD. There is no suspicious group of microcalcifications or new suspicious mass in either breast. Overall Assessment: Negative, BI-RAD 1 Management: Screening Mammogram of both breasts in 1 year. A clinical breast exam by your physician is recommended on an annual basis and results should be correlated with mammographic findings. [facility] will attempt to contact patient to return for supplemental views and ultrasound if indicated. Electronically signed and approved by: Don King DO
== END | disposition home or self-care (01) ==
LOC: RADMAMWWP 13:16
PROVIDERS: ATTEND Internal Medicine
DX: Z12.31 Encounter for screening mammogram for malignant neoplasm of breast (principal); Z78.0 Asymptomatic menopausal state; Z80.3 Family history of malignant neoplasm of breast
CPT/HCPCS: 77063; 77067

== ENCOUNTER 2023-02-17 14:05 | Observation (INO) | payer MEDICARE ==
[2023-02-17] MEDS ORDERED: NITROGLYCERIN OINT 1 INCH/GM PACKET TOPICAL STA (14:18)
--- NOTE | 2023-02-17 14:26 | ED ---
General Adult HPI - General Stated complaint: Chest Pain Time Seen by Provider: 02/17/23 14:10 Source: patient, RN notes reviewed, old records reviewed - History of Present Illness Initial comments: This is a 67-year-old female who has past medical history significant for coronary artery disease hypertension high cholesterol and a strong family history of heart disease. Patient states she was outside working with a cath and she was exerting herself trying to lift a calf and pushed the calf and she started having chest pain that radiated into her neck she became very short of breath and then diaphoretic. Patient took 2 nitroglycerin and rested and the pain eventually subsided. Patient states at that time was a 10 out of 10 pain. Patient states she has a scheduled catheterization in February but because of this is concerned her to the point where she thought she needed to be seen now. Patient currently has no chest pain. Patient denies any recent fever chills or cough per patient denies any abdominal pain patient denies nausea vomiting diarrhea. - Related Data Home Medications Medication Instructions Recorded Confirmed Aspirin 325 mg PO DAILY PRN 10/03/16 10/03/16 L.acidoph,Paracasei, B.lactis 1 cap PO DAILY 10/03/16 10/03/16 [Probiotic] [place]-3 Fatty Acids [[place]-3] 1,000 mg PO DAILY 10/03/16 10/03/16 Pravastatin Sodium [Pravachol] 40 mg PO HS 10/03/16 10/03/16 Ubiquinol [Co-Veratrol] 100 mg PO HS 10/03/16 10/03/16 Previous Rx's Medication Instructions Recorded Omeprazole [PriLOSEC] 40 mg PO WHIT-BRKFST #14 capsule. 10/04/16 Isosorbide Mononitrate ER [Imdur] 15 mg PO DAILY #30 dose 10/05/16 Metoprolol Tartrate [Lopressor] 25 mg PO BID #60 tablet 10/05/16 Allergies Allergy/AdvReac Type Severity Reaction Status Date / Time No Known Allergies Allergy Verified 02/08/21 19:12 Review of Systems ROS Statement: Those systems with pertinent positive or pertinent negative responses have been documented in the HPI. ROS Other: All systems not noted in ROS Statement are negative. Past Medical History Past Medical History: Hyperlipidemia Additional Past Medical History / Comment(s): Migraines, osteoporosis, bronchitis, diverticular disease, past L foot and R ankle fractures. History of Any Multi-Drug Resistant Organisms: None Reported Past Surgical History: Bladder Surgery, Hysterectomy Additional Past Surgical History / Comment(s): Bladder suspension, colonoscopy-normal. Past Anesthesia/Blood Transfusion Reactions: No Reported Reaction Past Psychological History: No Psychological Hx Reported Smoking Status: Never smoker Past Alcohol Use History: None Reported Past Drug Use History: None Reported - Past Family History Father Additional Family Medical History / Comment(s): Father had enlarged heart. He at the age of 88yrs. Mother Family Medical History: Myocardial Infarction ([place]) Additional Family Medical History / Comment(s): Mother had MT's. She lived to be 91 yrs. old. General Exam - General Exam Comments Initial Comments: GENERAL: Patient is well-developed and well-nourished. Patient is nontoxic and well- hydrated and is in no acute distress. ENT: Neck is soft and supple. No significant lymphadenopathy is noted. Oropharynx is clear. Moist mucous membranes. Neck has full range of motion without eliciting any pain. EYES: The sclera were anicteric and conjunctiva were pink and moist. Extraocular movements were intact and pupils were equal round and reactive to light. Eyelids were unremarkable. PULMONARY: Unlabored respirations. Good breath sounds bilaterally. No audible rales rhonchi or wheezing was noted. CARDIOVASCULAR: There is a regular rate and rhythm without any murmurs gallops or rubs. ABDOMEN: Soft and nontender with normal bowel sounds. SKIN: Skin is clear with no lesions or rashes and otherwise unremarkable. NEUROLOGIC: Patient is alert and oriented x3. Cranial nerves II through XII are grossly intact. Motor and sensory are also intact. Normal speech, volume and content. Symmetrical smile. MUSCULOSKELETAL: Normal extremities with adequate strength and full range of motion. LYMPHATICS: No significant lymphadenopathy is noted PSYCHIATRIC: Normal psychiatric evaluation. Course Vital Signs 02/17/23 14:10 Temperature 97.9 F Pulse Rate 62 Respiratory 18 Rate Blood Pressure 127/78 O2 Sat by Pulse 95 Oximetry Medical Decision Making - Medical Decision Making EKG was interpreted by myself shows a sinus rhythm at 60 bpm ID interval 172 QRS is 89 Q-T intervals 363 QTC is 381. Patient's EKG shows no ST segment elevation or depression. Was pt. sent in by a medical professional or institution (, PA, PSYCHOLOGICAL ASSISTANT, urgent care, hospital, or assisted...) When possible be specific @ -[No] Did you speak to anyone other than the patient for history (EMS, parent, family, police, friend...)? What history was obtained from this source @ -[No] Did you review nursing and triage notes (agree or disagree)? Why? @ -[I reviewed and agree with nursing and triage notes] Were old charts reviewed (outside hosp., previous admission, EMS record, old EKG, old radiological studies, urgent care reports/EKG's, assisted records)? Report findings @ -[No old charts were reviewed] Differential Diagnosis (chest pain, altered mental status, abdominal pain women, abdominal pain men, vaginal bleeding, weakness, fever, dyspnea, syncope, headache, dizziness, GI bleed, back pain, seizure, CVA, palpatations, mental health, musculoskeletal)? @ -Differential Chest Pain: Stable Angina, Unstable Angina, STEMI, NSTEMI Aortic Dissection, Pneumothorax, Musculoskeletal, Esophageal Spasm GERD, Cholecystitis, Pancreatitis, Zoster, this is not meant to be an all-inclusive list. EKG interpreted by me (3pts min.). @ -[As above] X-rays interpreted by me (1pt min.). @ -Chest x-ray was interpreted by myself is in no acute abnormality CT interpreted by me (1pt min.). @ -[None done] U/S interpreted by me (1pt. min.). @ -[None done] What testing was considered but not performed or refused? (CT, X-rays, U/S, labs)? Why? @ -[None] What meds were considered but not given or refused? Why? @ -[None] Did you discuss the management of the patient with other professionals (professionals i.e. JUDE Mejía, PSYCHOLOGICAL ASSISTANT, lab, RT, psych nurse, social worker clinical, woods rider, teacher, court security officer, caser in)? Give summary @ -I spoke with the triage hospitalist agreed to admit the patient with the patient wrote admitting orders Was smoking cessation discussed for >3mins.? @ -[No] Was critical care preformed (if so, how long)? @ -[No] Were there social determinants of health that impacted care today? How? (Homelessness, low income, unemployed, alcoholism, drug addiction, transportation, low edu. Level, literacy, decrease access to med. care, penitentiary, rehab)? @ -[No] Was there de-escalation of care discussed even if they declined (Discuss DNR or withdrawal of care, Hospice)? DNR status @ -[No] What co-morbidities impacted this encounter? (DM, HTN, Smoking, COPD, CAD, Cancer, CVA, ARF, Chemo, Hep., AIDS, mental health diagnosis, sleep apnea, morbid obesity)? @ -[None] Was patient admitted / discharged? Hospital course, mention meds given and route, prescriptions, significant lab abnormalities, going to OR and other pertinent info. @ -Patient had significant clinical picture however she was chest pain-free when she arrived and continued to be so throughout her ED stay. I spoke with the significant hospice agreed to admit the patient to the patient remaining orders I consulted cardiology Undiagnosed new problem with uncertain prognosis? @ -[No] Drug Therapy requiring intensive monitoring for toxicity (Heparin, Nitro, Insulin, Cardizem)? @ -[No] Were any procedures done? @ -[No] Diagnosis/symptom? @ -Chest pain Acute, or Chronic, or Acute on Chronic? @ -Acute Uncomplicated (without systemic symptoms) or Complicated (systemic symptoms)? @ -Complicated Side effects of treatment? @ -[No] Exacerbation, Progression, or Severe Exacerbation? @ -[No] Poses a threat to life or bodily function? How? (Chest pain, [place], [place], pneumonia, PE, COPD, DKA, ARF, appy, cholecystitis, CVA, Diverticulitis, Homicidal, Suicidal, threat to staff... and all critical care pts) @ -Yes this could lead to poor perfusion and end organ dysfunction - Lab Data Result diagrams: 02/17/23 14:34 02/17/23 14:34 Lab Results 02/17/23 02/17/23 Range/Units 14:34 14:34 WBC 6.9 (3.8-10.6) k/uL RBC 3.77 L (3.80-5.40) m/uL Hgb 11.2 L (11.4-16.0) gm/dL Hct 32.5 L (34.0-46.0) % MCV 86.1 (80.0-100.0) fL MCH 29.7 (25.0-35.0) pg MCHC 34.4 (31.0-37.0) g/dL RDW 12.9 (11.5-15.5) % Plt Count 371 (150-450) k/uL MPV 6.9 Neutrophils % 71 % Lymphocytes % 20 % Monocytes % 6 % Eosinophils % 1 % Basophils % 0 % Neutrophils # 4.8 (1.3-7.7) k/uL Lymphocytes # 1.4 (1.0-4.8) k/uL Monocytes # 0.4 (0-1.0) k/uL Eosinophils # 0.1 (0-0.7) k/uL Basophils # 0.0 (0-0.2) k/uL Sodium 138 (137-145) mmol/L Potassium 4.0 (3.5-5.1) mmol/L Chloride 107 (98-107) mmol/L Carbon Dioxide 23 (22-30) mmol/L Anion Gap 8 mmol/L BUN 17 (7-17) mg/dL Creatinine 1.26 H (0.52-1.04) mg/dL Est GFR (CKD-EPI)AfAm 51 (>60 ml/min/1.73 sqM) Est GFR (CKD-EPI)NonAf 44 (>60 ml/min/1.73 sqM) Glucose 100 H (74-99) mg/dL Calcium 8.6 (8.4-10.2) mg/dL Magnesium 2.3 (1.6-2.3) mg/dL Total Bilirubin 0.2 (0.2-1.3) mg/dL AST 21 (14-36) U/L ALT 17 (4-34) U/L Alkaline Phosphatase 57 (38-126) U/L Total Protein 6.2 L (6.3-8.2) g/dL Albumin 3.8 (3.5-5.0) g/dL Disposition Clinical Impression: Chest pain Disposition: ADMITTED IP TO THIS [facility] Referrals: Fabiola Bass MD [Primary Care Provider] - 1-2 days Time of Disposition: 15:21
[2023-02-17 14:56] LABS: Basophils % (A) 0 %; Eosinophils # (A) 0.1 k/uL (0-0.7); Eosinophils % (A) 1 %; HCT 32.5 % (34.0-46.0); HGB 11.2 gm/dL (11.4-16.0); Lymphocytes # (A) 1.4 k/uL (1.0-4.8); Lymphocytes % (A) 20 %; MCH 29.7 pg (25.0-35.0); MCHC 34.4 g/dL (31.0-37.0); MCV 86.1 fL (80.0-100.0); Mean Platelet Volume 6.9; Monocytes # (A) 0.4 k/uL (0-1.0); Monocytes % (A) 6 %; Neutrophils # (A) 4.8 k/uL (1.3-7.7); Neutrophils % (A) 71 %; Platelet Count 371 k/uL (150-450); RBC 3.77 m/uL (3.80-5.40); RDW 12.9 % (11.5-15.5); WBC 6.9 k/uL (3.8-10.6)
[2023-02-17 15:09] LABS: Albumin 3.8 g/dL (3.5-5.0); Calcium 8.6 mg/dL (8.4-10.2); Magnesium 2.3 mg/dL (1.6-2.3); Total Bilirubin 0.2 mg/dL (0.2-1.3); Total Protein 6.2 g/dL (6.3-8.2)
--- NOTE | 2023-02-17 15:13 | XR ---
EXAMINATION TYPE: XR chest 2V DATE OF EXAM: 02/17/2023 COMPARISON: Chest x-ray August 02, 2022 HISTORY: Chest pain. TECHNIQUE: Frontal and lateral views of the chest are obtained. FINDINGS: Suspect underlying emphysematous change. There is no suspicious focal air space opacity, p leural effusion, or pneumothorax seen. The cardiac silhouette size remains within normal limits. Und erlying scoliosis is redemonstrated. IMPRESSION: No acute cardiopulmonary process. No significant change from prior.
[2023-02-17 15:19] LABS: INR 0.9 (<1.2); Partial Thromboplastin Time 22.2 sec (22.0-30.0)
[2023-02-17] MEDS ORDERED: NITROGLYCERIN SL TABS 0.4 MG TAB SUBLINGUAL PRN (15:21)
[2023-02-17] MEDS ORDERED: HYDROmorphone 0.5 MG/0.5 ML SYRINGE IVP PRN (16:57)
[2023-02-17] MEDS ORDERED: HYDROcodone/APAP 5-325MG 1 EACH TAB PO PRN (16:57)
[2023-02-17] MEDS: NITROGLYCERIN OINT 1 INCH/GM PACKET TOPICAL SCH ×2 (18:16→23:10)
--- NOTE | 2023-02-18 00:43 | HP ---
HISTORY AND PHYSICAL CHIEF COMPLAINT: Chest pain. HISTORY OF PRESENT ILLNESS: This is a 67-year-old woman with a past medical history of hyperlipidemia, being followed by Dr. Bass in the outpatient setting, cardiac catheterization 6 years ago, subsequently recently the patient had normal stress test and 2D echo with Dr. Barlow. Otherwise, the patient is complaining of anginal episodes and today, the patient had chest pain which started on the right side which spread across the chest and then spread upwards the neck, left more than the right and the patient came to [facility]. The EKG which I reviewed personally showed no acute changes. Troponins are negative. The patient is being admitted for further evaluation and treatment. There is no history of any fever, rigors, or chills. PAST MEDICAL HISTORY: History of hyperlipidemia, history of migraine. Rest of the history is noted. HOME MEDICATIONS: Lisinopril, rest of medications and doses are noted. ALLERGIES: None. FAMILY HISTORY: History of myocardial infarction. SOCIAL HISTORY: No history of smoking or alcohol intake. REVIEW OF SYSTEMS: A 14-point review of systems is negative except as mentioned earlier. PHYSICAL EXAMINATION: VITAL SIGNS: Pulse 71, blood pressure n NECK: No JVD. CARDIOVASCULAR: S1, S2. RESPIRATION: Breath sounds diminished at the bases. No rhonchi. No crackles. ABDOMEN: Soft, nontender. LEGS: No edema. NERVOUS SYSTEM: No focal deficits. SKIN: No ulcer, rash, bleeding. JOINTS: No active deforming arthropathy. LABORATORY DATA: Hemoglobin n rest of the labs are noted. ASSESSMENT: 1. Chest pain, possible unstable angina. 3. Hyperlipidemia. 4. Migraine. 5. Hysterectomy. 6. History of bladder surgery. RECOMMENDATIONS: Recommend to continue medications and symptomatic treatment. Continue unstable angina protocol, antiplatelet agents. Otherwise, Cardiology consultation. Keep the patient n.p.o. after midnight. Possible cardiac catheterization per Cardiology. Further recommendations to follow. MMODL / IJN: [id number] / MTDD
[2023-02-18 02:35] VITALS: RESP 16
[2023-02-18] MEDS: NITROGLYCERIN OINT 1 INCH/GM PACKET TOPICAL SCH (05:36)
[2023-02-18] MEDS ORDERED: ASPIRIN 325 MG TAB PO STA (08:28)
[2023-02-18] MEDS ORDERED: NITROGLYCERIN SL TABS 0.4 MG TAB SUBLINGUAL PRN (08:28)
[2023-02-18] MEDS ORDERED: ALPRAZolam 0.25 MG TAB PO PRN (08:28)
[2023-02-18] MEDS ORDERED: ALPRAZolam 0.5 MG TAB PO PRN (08:28)
[2023-02-18] MEDS ORDERED: ATORVASTATIN 80 MG TAB PO STA (08:28)
[2023-02-18] MEDS ORDERED: SODIUM CHLORIDE 0.9% 1,000 ML in EMPTY BAG 1 BAG IV SCH (08:30)
[2023-02-18 08:43] LABS: Basophils # (A) 0.01 X 10*3/uL (0.00-0.10); Basophils % (A) 0.2 %; Eosinophils # (A) 0.08 X 10*3/uL (0.04-0.35); Eosinophils % (A) 1.4 %; HCT 34.2 % (37.2-46.3); Immature Grans, Automated 0.4 %; Lymphocytes # (A) 1.91 X 10*3/uL (0.90-5.00); Lymphocytes % (A) 34.4 %; MCH 28.6 pg (27.0-32.0); MCHC 32.2 g/dL (32.0-37.0); MCV 88.8 fL (80.0-97.0); Mean Platelet Volume 8.9 fL (9.5-12.2); Monocytes # (A) 0.61 X 10*3/uL (0.20-1.00); NRBC Per 100 WBC 0 /100 WBCS (0.0-0.0); Neutrophils # (A) 2.92 X 10*3/uL (1.80-7.70); Neutrophils % (A) 52.6 %; Platelet Count 351 X 10*3/uL (140-440); RBC 3.85 X 10*6/uL (4.10-5.20); RDW 12.9 % (11.5-14.5); WBC 5.55 X 10*3/uL (4.50-10.00)
[2023-02-18 08:46] LABS: Appearance,Urine Clear (Clear); Bilirubin,Urine Negative (Negative); Blood,Urine Negative (Negative); Color,Urine Yellow; Glucose,Urine (UA) Negative (Negative); Ketones,Urine Negative (Negative); Leukocyte Esterase,Urine Negative (Negative); Nitrite,Urine Negative (Negative); Protein,Urine Negative (Negative); Urobilinogen,Urine <2.0 mg/dL (<2.0)
[2023-02-18] MEDS ORDERED: EZETIMIBE 10 MG TAB PO SCH (09:00)
[2023-02-18] MEDS ORDERED: ASPIRIN 325 MG TAB PO SCH (09:00)
[2023-02-18] MEDS ORDERED: ASPIRIN 81 MG PO SCH (09:00)
[2023-02-18] MEDS ORDERED: PANTOPRAZOLE 40 MG/10 ML VIAL IVP SCH (09:00)
[2023-02-18 09:11] LABS: African American GFR (CKD) 88.4 (60.0-200.0); Blood Urea Nitrogen 17.6 mg/dL (9.0-27.0); Carbon Dioxide 23.7 mmol/L (20.0-27.5); Chloride 108 mmol/L (96-109); Chol/HDL Ratio 2.86 Ratio; Glucose 88 mg/dL (70-110); LDL Cholesterol,Calculated 92.8 mg/dL (0.0-131.0); Non-African American GFR(CKD) 76.3 (60.0-200.0); Potassium 4.6 mmol/L (3.5-5.5); Sodium 141 mmol/L (135-145); VLDL Calculation 12.46 mg/dL (5.00-40.00)
--- NOTE | 2023-02-18 10:27 | P.CRDCN ---
History of Present Illness Consult date: 02/18/23 History of present illness: HISTORY OF PRESENT ILLNESS: This is a 67-year-old female with a past medical history significant for coronary artery disease with severe disease involving the LAD that has been managed medically, hypertension, and hyperlipidemia. Patient follows in the office with Dr. Barlow. We have been asked to see the patient in consultation for chest pain. Patient examined at the bedside. Patient states that yesterday she was working out in the burn when she began to have chest pain. She states the pain was in the middle of her chest and radiated up into her neck. She reports feeling diaphoretic and short of breath. She states that the pain lasted for approximately 5 or 10 minutes. She states that she took sublingual nitro which relieved her pain. At that time she decided to come to the emergency room for further evaluation. At the time of examination, the patient denies any chest pain or pressure. She denies any shortness of breath. It is noted that the patient was scheduled for outpatient cardiac catheterization on 03/04/2023. * EKG reveals sinus mechanism with no signs of acute ischemia * Chest xray no acute cardiopulmonary process. No significant change from prior. * Laboratory data: W BC 5.55. Hemoglobin 11.0. Platelet count 351. Sodium 141. Potassium 4.6. BUN 17. Creatinine 0.8. Troponin negative 3 * Current home cardiac medications include lisinopril 2.5 mg daily, aspirin 81 mg daily, and Saturday at 10 mg daily * Most recent echocardiogram obtained in July 2022 in the office revealed normal EF, mild to moderate TR, and mild MR * Patient underwent Lexiscan stress test in September 2022 which was negative for ischemia * Cardiac catheterization history: September 2016 revealing severe disease in the distal LAD. This has been managed medically. REVIEW OF SYSTEMS: At the time of my exam: CONSTITUTIONAL: Denies fever or chills. HEENT: Denies blurred vision, vision changes, or eye pain. Denies hemoptysis CARDIOVASCULAR: Denies chest pain. Denies orthopnea. Denies PND. Denies palpitations RESPIRATORY: Denies shortness of breath. GASTROINTESTINAL: Denies abdominal pain. Denies nausea or vomiting. HEMATOLOGIC: Denies bleeding disorders. GENITOURINARY: Denies any blood in urine. SKIN: Denies pruitis. Denies rash. PHYSICAL EXAM: VITAL SIGNS: Reviewed. GENERAL: Well-developed in no acute distress. HEENT: Head is normocephalic. Pupils are equal, round. Sclerae anicteric. Mucous membranes of the mouth are moist. Neck supple. No JVD or thyromegaly LUNGS: Respirations even and unlabored. Lungs essentially clear to auscultation bilaterally. HEART: Regular rate and rhythm. S1 and S2 heard. ABDOMEN: Soft. Nondistended. Nontender. EXTREMITIES: Normal range of motion. No clubbing or cyanosis. Peripheral pulses intact. No lower extremity edema NEUROLOGIC: Awake and alert. Oriented x 3. ASSESSMENT: Chest pain Coronary artery disease with known severe disease in the distal LAD, managed medically Hypertension Hyperlipidemia, intolerant to statin therapy PLAN: No need to repeat echocardiogram Resume home cardiac medications Add metoprolol 12.5 mg twice a day Discontinue Nitropaste Patient to undergo cardiac catheterization today with Dr. Barlow Further recommendations pending patient's course Nurse practitioner note has been reviewed by physician. Signing provider agrees with the documented findings, assessment, and plan of care. Past Medical History Past Medical History: Hyperlipidemia Additional Past Medical History / Comment(s): Migraines, osteoporosis, bronchitis, diverticular disease, past L foot and R ankle fractures. History of Any Multi-Drug Resistant Organisms: None Reported Past Surgical History: Bladder Surgery, Heart Catheterization, Hysterectomy Additional Past Surgical History / Comment(s): Bladder suspension, colonoscopy- normal. Past Anesthesia/Blood Transfusion Reactions: No Reported Reaction Past Psychological History: No Psychological Hx Reported Additional Psychological History / Comment(s): Pt resides with her spouse. She is independent. Smoking Status: Never smoker Past Alcohol Use History: None Reported Past Drug Use History: None Reported - Past Family History Father Additional Family Medical History / Comment(s): Father had enlarged heart. He at the age of 88yrs. Mother Family Medical History: Myocardial Infarction (NV) Additional Family Medical History / Comment(s): Mother had NV's. She lived to be 91 yrs. old. Medications and Allergies Home Medications Medication Instructions Recorded Confirmed Type Aspirin EC [Ecotrin Low Dose] 81 mg PO DAILY 02/17/23 02/17/23 History Ciprofloxacin HCl [Cipro] 500 mg PO BID 02/17/23 02/17/23 History Ezetimibe [Zetia] 10 mg PO DAILY 02/17/23 02/17/23 History lisinopriL [Zestril] 2.5 mg PO DAILY 02/17/23 02/17/23 History Allergies Allergy/AdvReac Type Severity Reaction Status Date / Time No Known Allergies Allergy Verified 02/17/23 15:47 Physical Exam Vitals: Vital Signs Temp Pulse Pulse Resp BP BP BP 02/18/23 08:31 02/18/23 07:00 98.1 F 85 16 127/68 02/18/23 02:18 97.9 F 68 16 118/70 02/17/23 19:30 98.2 F 75 15 124/64 02/17/23 17:25 98.2 F 63 16 127/75 02/17/23 16:00 119/71 02/17/23 15:45 74 9 L 112/66 02/17/23 15:30 71 11 L 125/75 02/17/23 15:15 74 14 132/75 02/17/23 15:00 72 16 140/86 02/17/23 14:45 72 13 125/75 02/17/23 14:30 67 14 127/78 02/17/23 14:19 68 13 02/17/23 14:10 97.9 F 62 18 127/78 Pulse Ox FiO2 02/18/23 08:31 95 21 02/18/23 07:00 95 02/18/23 02:18 97 02/17/23 19:30 97 02/17/23 17:25 97 02/17/23 16:00 95 02/17/23 15:45 94 L 02/17/23 15:30 94 L 02/17/23 15:15 96 02/17/23 15:00 95 02/17/23 14:45 96 02/17/23 14:30 94 L 02/17/23 14:19 02/17/23 14:10 95 Intake and Output 02/17/23 02/18/23 02/18/23 22:59 06:59 14:59 Other: Voiding Method Toilet Toilet # Voids 1 1 Weight 54.431 kg Results 02/18/23 05:45 02/18/23 05:45 Cardiac Enzymes 02/17/23 02/17/23 02/17/23 Range/Units 14:34 14:34 17:59 AST 21 (14-36) U/L Troponin I <0.012 <0.012 (0.000-0.034) ng/mL 02/17/23 Range/Units 21:15 AST (14-36) U/L Troponin I <0.012 (0.000-0.034) ng/mL Coagulation 02/17/23 Range/Units 14:34 PT 10.0 (9.0-12.0) sec APTT 22.2 (22.0-30.0) sec Lipids 02/18/23 Range/Units 05:45 Triglycerides 62.30 (0.00-149.00) mg/dL Cholesterol 162.00 (0.00-200.00) mg/dL HDL Cholesterol 56.70 (40.00-60.00) mg/dL Cholesterol/HDL Ratio 2.86 Ratio CBC 02/17/23 02/18/23 Range/Units 14:34 05:45 WBC 6.9 5.55 (3.8-10.6) k/uL RBC 3.77 L 3.85 L (3.80-5.40) m/uL Hgb 11.2 L 11.0 L (11.4-16.0) gm/dL Hct 32.5 L 34.2 L (34.0-46.0) % Plt Count 371 351 (150-450) k/uL Comprehensive Metabolic Panel 02/17/23 02/18/23 Range/Units 14:34 05:45 Sodium 138 141 (137-145) mmol/L Potassium 4.0 4.6 (3.5-5.1) mmol/L Chloride 107 108 (98-107) mmol/L Carbon Dioxide 23 23.7 (22-30) mmol/L BUN 17 17.6 (7-17) mg/dL Creatinine 1.26 H 0.8 (0.52-1.04) mg/dL Glucose 100 H 88 (74-99) mg/dL Calcium 8.6 9.0 (8.4-10.2) mg/dL AST 21 (14-36) U/L ALT 17 (4-34) U/L Alkaline Phosphatase 57 (38-126) U/L Total Protein 6.2 L (6.3-8.2) g/dL Albumin 3.8 (3.5-5.0) g/dL Current Medications Generic Name Dose Route Start Last Admin Trade Name Freq PRN Reason Stop Dose Admin Hydrocodone Bitart/Acetaminophen 1 each 02/17/23 16:57 Hydrocodone/Apap 5-325mg 1 Each Tab PO Q6HR PRN Pain Alprazolam 0.25 mg 02/18/23 08:28 Alprazolam 0.25 Mg Tab PO Q6HR PRN Mild Anxiety Alprazolam 0.5 mg 02/18/23 08:28 Alprazolam 0.5 Mg Tab PO Q6HR PRN Moderate Anxiety Aspirin 81 mg 02/18/23 09:00 02/18/23 08:45 Aspirin 81 Mg PO Not Given DAILY ROSARIO Ezetimibe 10 mg 02/18/23 09:00 02/18/23 08:45 Ezetimibe 10 Mg Tab PO Not Given DAILY ROSARIO Hydromorphone HCl 0.5 mg 02/17/23 16:57 Hydromorphone 0.5 Mg/0.5 Ml Syringe IVP Q6HR PRN Severe Pain (Scale 7 to 10) Heparin Sodium (Porcine) 10, 1,001 mls @ 999 mls/hr 02/19/23 07:00 000 unit/ Sodium Chloride IRRIGATION 02/19/23 23:00 ONCE PRN INTRA-OP Heparin Sodium (Porcine) 2,500 250.5 mls @ 250 mls/hr 02/19/23 07:00 unit/ Sodium Chloride IRRIGATION 02/19/23 23:00 ONCE PRN INTRA-OP Sodium Chloride 1,000 ml/ IV 1,000 mls @ 54.431 mls/hr 02/18/23 08:30 02/18/23 08:48 Solution IV 54.431 mls/hr .[id number] ROSARIO Administration 1 ML/KG/HR Lisinopril 2.5 mg 02/18/23 09:00 02/18/23 09:25 Lisinopril 2.5 Mg Tab PO 2.5 mg DAILY ROSARIO Administration Nitroglycerin 0.4 mg 02/17/23 15:21 Nitroglycerin Sl Tabs 0.4 Mg Tab SUBLINGUAL Q5M PRN Chest Pain Nitroglycerin 1 inch 02/17/23 18:00 02/18/23 05:36 Nitroglycerin Oint 1 Inch/Gm Packet TOPICAL 1 inch Q6HR ROSARIO Administration Pantoprazole Sodium 40 mg 02/18/23 09:00 02/18/23 08:48 Pantoprazole 40 Mg/10 Ml Vial IVP 02/18/23 12:00 Not Given DAILY ROSARIO Pantoprazole Sodium 40 mg 02/19/23 07:30 Pantoprazole 40 Mg Tablet PO AC-[id number] ROSARIO Intake and Output 02/17/23 02/18/23 02/18/23 22:59 06:59 14:59 Other: Voiding Method Toilet Toilet # Voids 1 1 Weight 54.431 kg 02/18/23 05:45 02/18/23 05:45
[2023-02-18] MEDS ORDERED: MIDAZOLAM 2 MG/2 ML VIAL IVP ONE (11:18)
[2023-02-18] MEDS ORDERED: LIDOCAINE 1% INJ 10MG/ML (5 ML VIAL-PF) SQ ONE (11:19)
[2023-02-18] MEDS ORDERED: VERAPAMIL SYRINGE (5 MG/10 ML) INTRAARTER ONE (11:23)
[2023-02-18] MEDS ORDERED: HEPARIN SODIUM 1,000 UN/ML (10ML VL) IV ONE (11:25)
[2023-02-18] MEDS ORDERED: IV FLUID CONTINUATION 1,000 ML IV ONE (11:26)
[2023-02-18] MEDS ORDERED: IOPAMIDOL-370 100ML BTL INJ ONE (11:28)
[2023-02-18] MEDS ORDERED: RX INFO: IV CONTRAST WAS GIVEN 1 EACH MISC MISCELLANE PRN ×2 (11:35)
--- NOTE | 2023-02-18 11:39 | P.PCN ---
Date of Procedure: 02/18/23 Operative Findings: CARDIAC CATHETERIZATION PERFORMING PHYSICIAN: Farooq Barlow MD, RPVI PROCEDURE PERFORMED: 1. Selective right and left coronary angiogram 2. Left heart catheterization 3. Ultrasound-guided access of the right radial artery INDICATION: Unstable angina COMPLICATION: None APPROACH: Right radial artery LEVEL OF SEDATION: Moderate with a sedation length of [] minutes PROCEDURE DESCRIPTION: After obtaining an informed consent, the patient was brought to cardiac agriculture laborer. Local anesthesia was performed using lidocaine subcutaneously. The right radial artery was cannulated using Seldinger technique, the guidewire passed easily, following that we advanced a 5-Samoan sheath dilator assembly, the wire and dilator were removed and sheath was flushed. Following that, 2 mg of verapamil along with 3000 unit heparin were given. Selective right and left coronary angiogram using a 6-Samoan JR4 and JL 3.5 catheters. Following that we did left heart catheterization using 6-Samoan pigtail catheter. The procedure was completed there was no complication. SELECTIVE CORONARY ANGIOGRAM: The right coronary artery: Large-caliber vessel and is dominant vessel. This angiographically normal. Left main: Is angiographically normal. Bifurcates into an LCx and LAD The left circumflex: Large caliber vessel nondominant vessel. It has mild disease only. The left anterior descending artery: The LAD is a large caliber vessel was mild to moderate disease in the proximal and mid and distal portion. No high-grade stenosis was identified CONCLUSION: 1. Mild to moderate nonobstructive CAD POSTPROCEDURE MANAGEMENT: Medical treatment
[2023-02-18] MEDS ORDERED: SODIUM CHLORIDE 0.9% 1,000 ML IV SCH (11:45)
[2023-02-18 15:31] VITALS: TEMP 97.6
[2023-02-18 16:10] VITALS: BP 108/68; PULSE 85
[2023-02-18] MEDS ORDERED: METOPROLOL TARTRATE 12.5 MG TAB PO SCH (21:00)
--- NOTE | 2023-02-19 02:08 | DS ---
DISCHARGE SUMMARY FINAL DIAGNOSES: 1. Chest pain, possible unstable angina, status post cardiac catheterization showing mild to moderate coronary artery disease. 2. Hyperlipidemia. 3. Migraine. 4. Multiple medical issues. DISCHARGE DISPOSITION: The patient will be discharged in stable condition with guarded prognosis. Cardiology cleared the patient. HISTORY OF PRESENT ILLNESS: This is a 67-year-old woman with a past medical history of multiple medical problems, admitted with angina. Cardiac catheterization showed mild to moderate coronary artery disease. Dr. Barlow recommended medical treatment. PHYSICAL EXAMINATION: VITAL SIGNS: Stable. CARDIOVASCULAR: S1, S2. ABDOMEN: Soft. NERVOUS SYSTEM: Nonfocal. The patient will be discharged in stable condition with guarded prognosis with the following advice to follow up with Dr. Bass and Cardiology in the outpatient setting. Continue the home medications. Add Imdur 15 mg p.o. daily, Lopressor 12.5 mg p.o. b.i.d., nitroglycerin 0.4 subacute p.r.n. and follow up outpatient. MMODL / IJN: [id number] /
[2023-02-19] MEDS ORDERED: HEPARIN SODIUM,PORCINE 10,000 UNIT in SODIUM CHLORIDE 0.9% 1,000 ML IRRIGATION PRN (07:00)
[2023-02-19] MEDS ORDERED: HEPARIN SODIUM,PORCINE 2,500 UNIT in SODIUM CHLORIDE 0.9% 250 ML IRRIGATION PRN (07:00)
[2023-02-19] MEDS ORDERED: PANTOPRAZOLE 40 MG TABLET PO SCH (07:30)
== END 2023-02-18 16:45 | disposition home or self-care (01) ==
LOC: EC 14:05 → 6NMEDSUR 15:23
PROVIDERS: ADMIT Internal Medicine; ATTEND Internal Medicine
DX: I25.110 Atherosclerotic heart disease of native coronary artery with unstable angina pectoris (principal); I10 Essential (primary) hypertension; E78.5 Hyperlipidemia, unspecified; G43.909 Migraine, unspecified, not intractable, without status migrainosus; Z82.49 Family history of ischemic heart disease and other diseases of the circulatory system; Z90.710 Acquired absence of both cervix and uterus; Z98.890 Other specified postprocedural states; M81.0 Age-related osteoporosis without current pathological fracture; Z87.19 Personal history of other diseases of the digestive system; Z79.82 Long term (current) use of aspirin; Z79.899 Other long term (current) drug therapy
CPT/HCPCS: 99285; 36415; 93005; 93458; 76937; 80061; 80053; 80048; 83735; 84484; 85025 ×2; 85610; 85730; 81003; 71046; G0378 ×2; C1769 ×3; C1894; J2250; J2001; J1644; Q9967

== ENCOUNTER → 2024-03-03 | Outpatient (CLI) | payer MEDICARE ==
--- NOTE | 2024-03-03 20:34 | BD ---
EXAMINATION TYPE: Axial Bone Density DATE OF EXAM: 03/03/2024 CLINICAL HISTORY: 68 years old Female. ICD-10 CODE: M810 OSTEO Height: 4 FT 11IN Weight: 124.2 FRAX RISK QUESTIONS: Alcohol (3 or more units per day): no Family History (Parent hip fracture): no Glucocorticoids (More than 3mos): no (Ex: prednisone, prednisolone, methylprednisolone, dexamethasone, and hydrocortisone). History of Fracture in Adulthood: yes Secondary Osteoporosis: 1. Type 1 Diabetes: no 2. Hyperthyroidism: no 3. Menopause before 45: no 4. Malnutrition: no 5. Chronic liver disease: no Rheumatoid Arthritis: no Current Tobacco Use: no RISK FACTORS HISTORY OF: Surgery to Spine/Hip(right/left)/Wrist (right/left): no MEDICATIONS: Osteoporosis Medications: fosamax How Lon years EXAM MEASUREMENTS: Bone mineral densitometry was performed using the [employer] System. Bone mineral density as measured about the Lumbar spine is: ----- L1-L4(G/cm2): 0.742 T Score Values are as follows: ----- L1: -3.6 ----- L2: -3.3 ----- L3: -3.4 ----- L4: -4.2 ----- L1-L4: -3.6 Z Score Values are as follows: ----- L1: -1.7 ----- L2: -1.4 ----- L3: -1.4 ----- L4: -2.3 ----- L1-L4: -1.7 Bone mineral density has: increased -1.6 % since study of: 10.24.2021 Bone mineral density about the R hip (g/cm2): 0.704 Bone mineral density about the L hip (g/cm2): 0.765 T Score values are as follows: -----R Neck: -2.7 -----L Neck: -2.6 -----R Total: -2.4 -----L Total: -1.9 Z Score values are as follows: -----R Neck: -0.9 -----L Neck: -0.8 -----R Total: -0.9 -----L Total: -0.4 Bone mineral density has: decreased -0.8 % since study of: 1..2021 FRAX%s: The graph provided illustrates a 25.2% chance for a major osteoporotic fx and a 6.9% chance f or the hips probability for fx in 10 years time. IMPRESSION: Osteoporosis (T Score less than -2.5). There is increased fracture risk and therapy is usually indicated based on age. Re-Screen 1-2 years. NOTE: T-SCORE=SD OF THE YOUNG ADULT MEAN.
--- NOTE | 2024-03-04 18:46 | MM ---
Reason for Exam: Screening (asymptomatic). Last mammogram was performed 1 year(s) and 2 month(s) ago. Patient History: Menarche at age 12. First Full-Term at age 25. Hysterectomy at age 50. Postmenopausal. Maternal aunt had breast cancer, age 80. Risk Values: Shania 5 year model risk: 1.9%. NCI Lifetime model risk: 6.2%. Prior Study Comparison: 09/08/2019 Bilateral Screening Mammogram, [facility]. 10/24/2021 Bilateral Screening Mammogram, [facility]. 01/08/2023 Bilateral MG 3D screening mammo w/cad, [facility]. Tissue Density: There are scattered areas of fibroglandular density. Findings: Analyzed By CAD. There is no suspicious group of microcalcifications or new suspicious mass in either breast. Overall Assessment: Negative, BI-RAD 1 Management: Screening Mammogram of both breasts in 1 year. . Patient should continue monthly self-breast exams. A clinical breast exam by your physician is recommended on an annual basis. This exam should not preclude additional follow-up of suspicious palpable abnormalities. Note on Shania scores and lifetime risk: 1. A Shania score greater than 3% is considered moderate risk. If this is the case, consider specialist referral to assess eligibility for a risk reducing agent. 2. If overall lifetime risk for the development of breast cancer is 20% or higher, the patient may qualify for future screening with alternating mammogram and breast MRI. Electronically signed and approved by: Rehana Huang M.D. Radiologist
== END | disposition home or self-care (01) ==
LOC: RADMAMWWP 12:41
PROVIDERS: ATTEND Internal Medicine
DX: Z12.31 Encounter for screening mammogram for malignant neoplasm of breast (principal); M81.0 Age-related osteoporosis without current pathological fracture; M85.88 Other specified disorders of bone density and structure, other site; Z78.0 Asymptomatic menopausal state; Z80.3 Family history of malignant neoplasm of breast
CPT/HCPCS: 77063; 77067; 77080